=== PATIENT | male | born 1990 | race Caucasian/White ===

== ENCOUNTER 2017-01-16 14:04 | Emergency (ER) | payer OTHER ==
[2017-01-16 14:07] VITALS: BP 133/81; PULSE 98; RESP 16; TEMP 98.3
--- NOTE | 2017-01-16 14:17 | ED ---
Upper Extremity HPI - General Chief Complaint: Extremity Injury, Upper Stated Complaint: left shoulder injury Time Seen by Provider: 01/16/17 14:09 Source: patient, RN notes reviewed, old records reviewed Mode of arrival: ambulatory Limitations: no limitations - History of Present Illness Initial Comments: Patient is a 26-year-old male chief complaint of 7 years of left shoulder pain. Patient reports that he occasionally can pop in out of socket. Patient reports he has not done it recently. Patient states that he works at [employer] and uses arms frequently. He denies any decreased range of motion. Denies any numbness or tingling down the arm. Patient states the pain is mainly worse over the tip of the shoulder. Denies any falls or trauma. Patient reports that he is right-handed. Patient denies any recent fever, chills, shortness of breath, chest pain, back pain, abdominal pain, nausea vomiting, numbness or tingling, dysuria or hematuria, constipation or diarrhea, headaches or visual changes, or any other current symptoms - Related Data Previous Rx's Medication Instructions Recorded Ibuprofen [Motrin] 800 mg PO Q8HR PRN #20 tab 01/16/17 Allergies Allergy/AdvReac Type Severity Reaction Status Date / Time No Known Allergies Allergy Verified 01/16/17 14:27 Review of Systems ROS Statement: Those systems with pertinent positive or pertinent negative responses have been documented in the HPI. ROS Other: All systems not noted in ROS Statement are negative. Past Medical History Past Medical History: No Reported History History of Any Multi-Drug Resistant Organisms: None Reported Past Surgical History: No Surgical Hx Reported Past Psychological History: No Psychological Hx Reported Smoking Status: Current every day smoker Past Alcohol Use History: None Reported, Rare Past Drug Use History: None Reported General Exam - General Exam Comments Initial Comments: Pleasant 26-year-old male. No distress. Limitations: no limitations General appearance: alert, in no apparent distress Head exam: Present: atraumatic, normocephalic, normal inspection Eye exam: Present: normal appearance, PERRL, EOMI. Absent: scleral icterus, conjunctival injection, periorbital swelling ENT exam: Present: normal exam, mucous membranes moist Neck exam: Present: normal inspection. Absent: tenderness, meningismus, lymphadenopathy Respiratory exam: Present: normal lung sounds bilaterally. Absent: respiratory distress, wheezes, rales, rhonchi, stridor Cardiovascular Exam: Present: regular rate, normal rhythm, normal heart sounds. Absent: systolic murmur, diastolic murmur, rubs, gallop, clicks GI/Abdominal exam: Present: soft, normal bowel sounds. Absent: distended, tenderness, guarding, rebound, rigid Extremities exam: Present: normal inspection, full ROM, normal capillary refill. Absent: tenderness, pedal edema, joint swelling, calf tenderness Left Shoulder Exam: Present: normal inspection, full ROM, tenderness (Patient is tenderness over the glenohumeral joint.) Upper Arm exam: Present: normal inspection, full ROM Elbow exam: Present: normal inspection, full ROM Forearm Wrist exam: Present: normal inspection, full ROM Hand Wrist exam: Present: normal inspection, full ROM Neuro motor exam: Present: wrist extension intact, thumb opposition intact, thumb IP flexion intact, thumb adduction intact, fingers 2-5 abduction intact Neurosensory exam: Present: 2-point discrimination, radial nerve intact, ulnar nerve intact, median nerve intact Vascular: Present: normal capillary refill Back exam: Present: normal inspection Neurological exam: Present: alert, oriented X3, CN II-XII intact Psychiatric exam: Present: normal affect, normal mood Skin exam: Present: warm, dry, intact, normal color. Absent: rash Course Vital Signs 01/16/17 14:06 Temperature 98.3 F Pulse Rate 98 Respiratory 16 Rate Blood Pressure 133/81 O2 Sat by Pulse 99 Oximetry Medical Decision Making - Medical Decision Making Patient is a 26-year-old male chief complaint of 7 years of left shoulder pain. Patient reports that he occasionally can pop in out of socket. Patient reports he has not done it recently. Patient states that he works at [employer] and uses arms frequently. He denies any decreased range of motion. Denies any numbness or tingling down the arm. Patient states the pain is mainly worse over the tip of the shoulder. Denies any falls or trauma. Patient received x-rays. Patient is a full range of motion. Full strength with shoulder. No evidence of deformities, swelling or redness. X-rays negative for any acute process. Discussed the patient is follow-up with orthopedic if symptoms continue to persist. Patient received treatment plan will comply. Return parameters were discussed. Discussed I will discharge the patient with a antiinflammatory medications. - Radiology Data Radiology results: report reviewed X-rays negative for any acute process. Disposition Clinical Impression: Left shoulder strain Disposition: HOME SELF-CARE Condition: Good Instructions: Rotator Cuff Injury (ED) Additional Instructions: Rest arm, ice, take antinflammatory medications. Follow-up with orthopedic physician. Return to emergency department if any alarming signs or symptoms occur. Prescriptions: Ibuprofen [Motrin] 800 mg PO Q8HR PRN #20 tab PRN Reason: Pain Referrals: Sulaiman Diallo MD [STAFF PHYSICIAN] - 1-2 days Time of Disposition: 14:34
--- NOTE | 2017-01-16 14:26 | XR ---
EXAMINATION TYPE: XR shoulder complete LT DATE OF EXAM: 01/16/2017 2:23 PM COMPARISON: NONE HISTORY: Pain TECHNIQUE: Three views are submitted. FINDINGS: The osseous structures are intact. There is no acute fracture or dislocation. The AC joint is maint ained. IMPRESSION: 1. No acute process.
== END 2017-01-16 14:54 | disposition home or self-care (01) ==
LOC: EC 14:04
DX: S46.912A Strain of unspecified muscle, fascia and tendon at shoulder and upper arm level, left arm, initial encounter (principal); F17.200 Nicotine dependence, unspecified, uncomplicated; X58.XXXA Exposure to other specified factors, initial encounter
CPT/HCPCS: 99283

== ENCOUNTER 2018-04-23 14:26 | Emergency (ER) | payer OTHER ==
[2018-04-23 14:36] VITALS: BP 132/86; PULSE 82; RESP 18; TEMP 97.9
[2018-04-23] MEDS ORDERED: IBUPROFEN 600 MG TAB PO STA (14:52)
--- NOTE | 2018-04-23 15:22 | XR ---
EXAMINATION TYPE: XR lumbar spine 2 or 3V DATE OF EXAM: 04/23/2018 CLINICAL HISTORY: Low back pain after lifting injury. TECHNIQUE: Frontal and lateral images of the lumbar spine are obtained. COMPARISON: None FINDINGS: There are 5 lumbar type vertebral bodies identified. The lumbar spine shows satisfactory alignment without evidence of acute fracture or dislocation. Vertebral body heights and disk space he ights are within normal limits. No significant spurring is present. The overlying soft tissue appear s unremarkable. IMPRESSION: No acute fracture or dislocation is seen in the lumbar spine.
--- NOTE | 2018-04-23 15:33 | ED ---
Back Pain HPI - General Chief Complaint: Back Pain/Injury Stated Complaint: back pain Time Seen by Provider: 04/23/18 14:39 Source: patient Limitations: no limitations - History of Present Illness Initial Comments: this is a 27-year-old male with no past medical history presents today for chief complaint of right-sided low back pain times one week. Patient states that last week he was going to throw a heavy garbage bag into the dumpster while at work, he stated that the bag weighed about 50 pounds when he twisted to throw the bag he felt a sharp pain in his right lower back. Patient did not seek medical attention at that time and continue to work. Patient states that the pain continued, and sometimes radiate down his right leg depending on the position. when the pain lasting for greater than a week, patient decided to present to the emergency department for imaging. Patient denies any numbness, tingling, paresthesias, loss sensation, muscle weakness, coolness of the extremities, ataxia of the lower Achilles bilaterally. Patient denies any loss of bowel or bladder control, or saddle paresthesias or anesthesia. Patient admits to right-sided low back pain that is reproduced with palpation and increased with certain movements without any other associated symptoms. Patient denies any recent fever, chills, history of recent weight loss, history of IV drug use, shortness of breath, chest pain, abdominal pain, nausea or vomiting, dysuria, urgency, frequency or hematuria, constipation or diarrhea, headaches or visual changes, or any other complaints. - Related Data Previous Rx's Medication Instructions Recorded Ibuprofen [Motrin] 800 mg PO Q8HR PRN #20 tab 01/16/17 Cyclobenzaprine [Flexeril] 5 mg PO HS 4 Days #4 tab 04/23/18 Ibuprofen [Motrin] 800 mg PO Q8HR PRN 5 Days #15 tab 04/23/18 Allergies Allergy/AdvReac Type Severity Reaction Status Date / Time No Known Allergies Allergy Verified 04/23/18 14:33 Review of Systems ROS Statement: Those systems with pertinent positive or pertinent negative responses have been documented in the HPI. ROS Other: All systems not noted in ROS Statement are negative. Constitutional: Denies: fever, chills, weakness, weight change, night sweats Respiratory: Denies: cough, dyspnea, wheezes, hemoptysis, stridor Cardiovascular: Denies: chest pain Gastrointestinal: Denies: abdominal pain, nausea, vomiting Genitourinary: Denies: urgency, dysuria, frequency, hematuria Musculoskeletal: Reports: as per HPI, back pain, myalgia Skin: Denies: rash, lesions, change in color Neurological: Denies: headache, weakness, numbness, paresthesias, confusion, abnormal gait Past Medical History Past Medical History: No Reported History History of Any Multi-Drug Resistant Organisms: None Reported Past Surgical History: Orthopedic Surgery Past Psychological History: No Psychological Hx Reported Smoking Status: Current every day smoker Past Alcohol Use History: None Reported, Rare Past Drug Use History: Marijuana General Exam - General Exam Comments Initial Comments: General: The patient is awake and alert, in no distress, and does not appear acutely ill. Eye: Pupils are equal, round and reactive to light, extra-ocular movements are intact. No nystagmus. There is normal conjunctiva bilaterally. No signs of icterus. Ears, nose, mouth and throat: There are moist mucous membranes and no oral lesions. Neck: The neck is supple, there is no tenderness or JVD. Cardiovascular: There is a regular rate and rhythm. No murmur, rub or gallop is appreciated. Respiratory: Lungs are clear to auscultation, respirations are non-labored, breath sounds are equal. No wheezes, stridor, rales, or rhonchi. Gastrointestinal: Soft, non-distended, non-tender abdomen without masses or organomegaly noted. There is no rebound or guarding present. No CVA tenderness. Bowel sounds are unremarkable. Musculoskeletal: Full ROM with active range of motion of the lumbar spine with flexion, hyperextension, lateral flexion and rotation. Patient admits to increased pain with rotation to the left lateral flexion to the left. Patient amidst to tenderness to palpation over the right paravertebral muscles and latissimus dorsi. She denies any midline vertebral tenderness to palpation. Strength 5/5of the lower x-rays bilaterally. Sensation intactof the lower extremities equally bilaterally, including the inner thighs. DP pulses equal bilaterally 2+.+2 DTR of the LE equally b/l. Patient is able to heel and toe walk without difficulty, no ataxia noted with gait. Negative straight leg raise bilaterally. Neurological: A&O x 3. CN II-XII intact, There are no obvious motor or sensory deficits. Coordination appears grossly intact. Speech is normal. Skin: Skin is warm and dry and no rashes or lesions are noted. Psychiatric: Cooperative, appropriate mood & affect, normal judgment. Limitations: no limitations Course Vital Signs 04/23/18 14:33 Temperature 97.9 F Pulse Rate 82 Respiratory 18 Rate Blood Pressure 132/86 O2 Sat by Pulse 100 Oximetry Medical Decision Making - Medical Decision Making Patient was given 600 mg ibuprofen for for pain management, and x-rays of lumbar spine were obtained revealing no acute process or fracture, but this basically between the disks appear to be normal height. Given patient's history and physical exam findings at this time feel they're consistent with a lower back strain. Patient was given prescription for Flexeril 5 mg to take at night and educated not to take while working, driving or operating machinery. As well as ibuprofen 800 for pain management as needed. Case was discussed in detail with Dr. Ramirez. Patient was discharged with orthopedic follow-up in 1- 2 days and instructed to return to emergency department for any change orworsening symptoms.patient discharged in stable condition, afebrile. patient was given a work note for 2 days. Patient is instructed to rest, ice and heat back. Disposition Clinical Impression: Low back strain Disposition: HOME SELF-CARE Condition: Good Instructions: Acute Low Back Pain (ED) Additional Instructions: Please use medication as discussed. Please follow-up with orthopedic surgery in 1-2 days if symptoms do not subside. Please return to emergency room if the symptoms increase or worsen or for any other concerns as discussed. Prescriptions: Cyclobenzaprine [Flexeril] 5 mg PO HS 4 Days #4 tab Ibuprofen [Motrin] 800 mg PO Q8HR PRN 5 Days #15 tab PRN Reason: Pain Is patient prescribed a controlled substance at d/c from ED?: No Referrals: Carlitos Leahy Jr, DO [Primary Care Provider] - 1-2 days Sulaiman Diallo MD [STAFF PHYSICIAN] - 1-2 days Time of Disposition: 15:33
== END 2018-04-23 15:39 | disposition home or self-care (01) ==
LOC: EC 14:26
DX: S39.012A Strain of muscle, fascia and tendon of lower back, initial encounter (principal); F17.200 Nicotine dependence, unspecified, uncomplicated; X50.0XXA Overexertion from strenuous movement or load, initial encounter; Y93.89 Activity, other specified; Y92.69 Other specified industrial and construction area as the place of occurrence of the external cause
CPT/HCPCS: 72100; 99283

== ENCOUNTER 2021-08-01 12:34 | Emergency (ER) | payer OTHER ==
--- NOTE | 2021-08-01 13:56 | XR ---
Left hand HISTORY: Trauma and pain 3 views of the left hand There is a boxer's fracture with volar angulation and displacement at the distal fifth metacarpal. Th ere is associated soft tissue swelling. No dislocation. IMPRESSION: Boxer's fracture.
[2021-08-01] MEDS ORDERED: DIPH,PERTUS(ACELL)TETVAC-LF 0.5 ML VIAL IM ONE (15:56)
--- NOTE | 2021-08-01 16:04 | ED ---
General Adult HPI - General Chief complaint: Extremity Injury, Upper Stated complaint: hand injury Time Seen by Provider: 08/01/21 15:00 Source: patient, RN notes reviewed Mode of arrival: ambulatory Limitations: no limitations - History of Present Illness Initial comments: Patient is a pleasant 30-year-old male presenting to the emergency department fo llowing left hand injury. Injury occurred yesterday. Patient was upset and hit a wall. No other area of injury or concern. Patient is right-hand dominant. No history of previous injury to this area. Discomfort is mild to moderate but increases with movement and touch. Patient does not want any pain medicine. - Related Data Previous Rx's Medication Instructions Recorded Ibuprofen [Motrin] 800 mg PO Q8HR PRN #20 tab 01/16/17 Cyclobenzaprine [Flexeril] 5 mg PO HS 4 Days #4 tab 04/23/18 Ibuprofen [Motrin] 800 mg PO Q8HR PRN 5 Days #15 tab 04/23/18 Allergies Allergy/AdvReac Type Severity Reaction Status Date / Time No Known Allergies Allergy Verified 08/01/21 13:17 Review of Systems ROS Statement: Those systems with pertinent positive or pertinent negative responses have been documented in the HPI. ROS Other: All systems not noted in ROS Statement are negative. Constitutional: Denies: fever Eyes: Denies: eye pain ENT: Denies: ear pain Respiratory: Denies: cough Cardiovascular: Denies: chest pain Endocrine: Denies: fatigue Genitourinary: Denies: dysuria Musculoskeletal: Reports: as per HPI. Denies: back pain Skin: Denies: lesions Neurological: Denies: weakness Past Medical History Past Medical History: No Reported History History of Any Multi-Drug Resistant Organisms: None Reported Past Surgical History: Orthopedic Surgery Past Psychological History: No Psychological Hx Reported Smoking Status: Current some day smoker Past Alcohol Use History: None Reported, Rare Past Drug Use History: Marijuana General Exam Limitations: no limitations General appearance: alert, in no apparent distress Head exam: Present: atraumatic Eye exam: Present: normal appearance Neck exam: Absent: tenderness Respiratory exam: Present: normal lung sounds bilaterally Cardiovascular Exam: Present: regular rate, normal rhythm GI/Abdominal exam: Present: soft. Absent: tenderness Extremities exam: Present: other (Left hand proximal to the fifth MCP with swel ling and tenderness and small abrasion. Distally the finger is neurovascular intact. Good strength. Sensation intact. Cap refill less than 10 seconds.) Neurological exam: Present: alert. Absent: motor sensory deficit Psychiatric exam: Present: normal affect, normal mood Skin exam: Present: abrasion Course Vital Signs 08/01/21 13:14 Temperature 97.9 F Pulse Rate 83 Respiratory 19 Rate Blood Pressure 141/89 O2 Sat by Pulse 98 Oximetry Procedures - Orthopedic Splinting/Casting Injury #1 Side: left Upper Extremity Injury Location: short arm Upper Extremity Immobilizer: ulnar gutter Medical Decision Making - Radiology Data Radiology results: image reviewed (Left hand x-ray does show a boxer's fracture) Disposition Clinical Impression: Boxers fracture Disposition: HOME SELF-CARE Condition: Stable Instructions (If sedation given, give patient instructions): Hand Fracture (ED) Additional Instructions: Please follow-up with orthopedics in the next couple days for recheck, number given. Ice to affected area. Return for increased pain, swelling, hand problems, worsening or changing symptoms or other concerns. Is patient prescribed a controlled substance at d/c from ED?: No Referrals: Carlitos Leahy Jr, DO [Primary Care Provider] - 1-2 days Darren Mitchell DO [Doctor of Osteopathic Medicine] - 1-2 days Time of Disposition: 16:04
[2021-08-01 16:13] VITALS: BP 140/78; PULSE 77; RESP 20; TEMP 98.6
== END 2021-08-01 16:14 | disposition home or self-care (01) ==
LOC: EC 12:34
DX: S62.397A Other fracture of fifth metacarpal bone, left hand, initial encounter for closed fracture (principal); F17.200 Nicotine dependence, unspecified, uncomplicated; F12.90 Cannabis use, unspecified, uncomplicated; W22.01XA Walked into wall, initial encounter
CPT/HCPCS: 29125; 99284

== ENCOUNTER 2022-09-04 19:41 | Emergency (ER) | payer OTHER ==
--- NOTE | 2022-09-04 20:35 | ED ---
Head Injury HPI - General Chief complaint: Head Injury Stated complaint: Head Injury Time Seen by Provider: 09/04/22 20:24 Source: patient, RN notes reviewed Mode of arrival: ambulatory Limitations: no limitations - History of Present Illness Initial comments: This is a pleasant 32-year-old male who struck his head on part of his machine at work about 2.5 hours ago. Patient states there is a bolt on his machine. Patient states he was slightly dazed. Patient states sometime after that he developed develop some nausea. He's had no vomiting. Denying any vision or hearing changes. No vertigo. No imbalance. Does have a headache that is relegated to the area of injury. This is near the right temporal parietal area. Patient has no blood dyscrasias. Not on blood thinners. There was no loss of consciousness. Recalls the entire event. No headache, no fever or chills, no changes in vision or hearing, no sore throat or difficulty with speech, no neck pain, no chest pain or shortness of breath, no abdominal pain, no nausea or vomiting, no changes in urination or bowel movements, no numbness or tingling, no extremity pain, no skin rashes or lesions. Past medical, christ Complaint: head injury - Related Data Previous Rx's Medication Instructions Recorded Ibuprofen [Motrin] 800 mg PO Q8HR PRN #20 tab 01/16/17 Cyclobenzaprine [Flexeril] 5 mg PO HS 4 Days #4 tab 04/23/18 Ibuprofen [Motrin] 800 mg PO Q8HR PRN 5 Days #15 tab 04/23/18 Allergies/Adverse reactions: Allergies Allergy/AdvReac Type Severity Reaction Status Date / Time No Known Allergies Allergy Verified 09/04/22 19:59 Review of Systems ROS Statement: Those systems with pertinent positive or pertinent negative responses have been documented in the HPI. ROS Other: All systems not noted in ROS Statement are negative. Past Medical History Past Medical History: No Reported History History of Any Multi-Drug Resistant Organisms: None Reported Past Surgical History: Orthopedic Surgery Past Psychological History: No Psychological Hx Reported Smoking Status: Former smoker Past Alcohol Use History: None Reported, Rare Past Drug Use History: Marijuana General Exam - General Exam Comments Initial Comments: Cranial nerves II through XII intact. Alert and oriented 4. Normal gait. Limitations: no limitations General appearance: alert, in no apparent distress Head exam: Present: other (Patient has a tiny abrasion to the right parietal temporal area. No crepitus. No step-off. No bleeding. Normocephalic/atraumatic otherwise.) Eye exam: Present: normal appearance, PERRL, EOMI. Absent: scleral icterus, conjunctival injection, periorbital swelling ENT exam: Present: normal exam, normal oropharynx, mucous membranes moist, TM's normal bilaterally, normal external ear exam. Absent: mucous membranes dry Neck exam: Present: normal inspection, full ROM. Absent: tenderness, meningismus, lymphadenopathy Respiratory exam: Present: normal lung sounds bilaterally. Absent: respiratory distress, wheezes, rales, rhonchi, stridor, chest wall tenderness, accessory muscle use, decreased breath sounds, prolonged expiratory Cardiovascular Exam: Present: regular rate, normal rhythm, normal heart sounds. Absent: systolic murmur, diastolic murmur, rubs, gallop, clicks GI/Abdominal exam: Present: soft, normal bowel sounds. Absent: distended, tenderness, guarding, rebound, rigid Extremities exam: Present: normal inspection, full ROM, normal capillary refill. Absent: tenderness, pedal edema, joint swelling, calf tenderness Back exam: Present: normal inspection Neurological exam: Present: alert, oriented X3, CN II-XII intact. Absent: motor sensory deficit Expanded Patient oriented to: Present: person, place, time Speech: Present: fluid speech Cranial nerves: EOM's Intact: Normal, Gag Reflex: Normal, Tongue Deviation: Normal, Nystagmus: Normal, Facial Sensation: Normal, Facial Palsy with Forehead Movement: Normal, Facial Palsy without Forehead Movement: Normal Ataxia: Absent: yes Cerebellar function: Finger to Nose: Normal, Romberg: Normal Motor strength exam: RUE: 5, LUE: 5, RLE: 5, LLE: 5 Eye Response: (4) open spontaneously Motor Response: (6) obeys commands Verbal Response: (5) oriented [place] Total: 15 Psychiatric exam: Present: normal affect, normal mood Skin exam: Present: warm, dry, intact, normal color. Absent: rash Course Vital Signs 09/04/22 19:57 Temperature 98.7 F Pulse Rate 80 Respiratory 18 Rate Blood Pressure 129/81 O2 Sat by Pulse 96 Oximetry Medical Decision Making - Medical Decision Making Differential diagnosis: Closed head injury, concussion, skull fracture, intracranial hemorrhage Supervising physician Dr. Doss Computed tomography scan was considered. After long discussion with the patient, this was deferred. Shared decision-making. Patient neurologically intact. Cerebellar testing is normal. Suspect the patient has a mild close head injury, possible mild concussion. We'll have the patient off of work until reevaluation tomorrow. Patient concurs with this treatment plan. For Tylenol, patient deferred this medication. Patient was told to return to the ER for any signs or symptoms worsen. Told to return immediately if any other problems arise. All questions answered. Treatment plan discussed. Patient in agreement Every effort has been made to ensure accuracy of this dictation. However, due to the limitations of electronic medical records and dictation devices, errors in charting still occur. The case was discussed in detail with ED attending physician. Presentation, findings, treatment plan discussed in detail. Jack Machine Operator Dr. Doss Disposition Clinical Impression: Closed head injury, Concussion without loss of consciousness Disposition: HOME SELF-CARE Condition: Good Instructions (If sedation given, give patient instructions): Head Injury (ED) Additional Instructions: Follow[facility]up with [facility] tomorrow prior to returning to work--- for reevaluation. Follow-up with your regular physician as directed. Return to the ER immediately if any symptoms worsen, new symptoms arise, or any other problems develop. Is patient prescribed a controlled substance at d/c from ED?: No Time of Disposition: 20:34
[2022-09-04 21:44] VITALS: BP 115/74; PULSE 69; RESP 16; TEMP 98.9
== END 2022-09-04 21:44 | disposition home or self-care (01) ==
LOC: EC 19:41
DX: S06.0X0A Concussion without loss of consciousness, initial encounter (principal); F12.90 Cannabis use, unspecified, uncomplicated; Z87.891 Personal history of nicotine dependence; W31.1XXA Contact with metalworking machines, initial encounter
CPT/HCPCS: 99283

== ENCOUNTER → 2022-09-07 | Outpatient (CLI) | payer OTHER ==
--- NOTE | 2022-09-07 12:13 | CT ---
EXAMINATION TYPE: CT brain wo con DATE OF EXAM: 09/07/2022 COMPARISON: None INDICATION: Contusion Head DLP: 1054.2 mGycm, Automated exposure control for dose reduction was used. CONTRAST: None CT of the brain is performed utilizing 3 mm thick sections through the posterior fossa and 3 mm thick sections through the remaining calvarium. Study is performed within 24 hours of arrival to the hosp [facility]. No abnormal hyperdensity is present to suggest an acute intracranial hemorrhage. No mass lesion is evident. No acute infarcts are evident. Ventricles and sulci are appropriate for the patient age. Paranasal sinuses and mastoid air cells within the [id number] are clear. No acute fractures are evident. IMPRESSIONS: 1. No acute intracranial process. Follow-up MRI can be performed as clinically indicated.
== END | disposition home or self-care (01) ==
LOC: RADCTMAIN 11:47
PROVIDERS: ATTEND Emergency Medicine
DX: S00.83XA Contusion of other part of head, initial encounter (principal)
CPT/HCPCS: 70450

== ENCOUNTER 2024-03-15 14:45 | Emergency (ER) | payer BC, OTHER ==
--- NOTE | 2024-03-15 14:57 | ED ---
General Adult HPI - General Chief complaint: Extremity Injury, Lower Stated complaint: leg lac Time Seen by Provider: 03/15/24 14:57 Source: patient, RN notes reviewed Mode of arrival: ambulatory Limitations: no limitations - History of Present Illness Initial comments: This is a 33-year-old male's emergency department chief complaint of a laceration to his right thigh. Patient states that he was at home using an X- [employer] knife to cut part of his bumper when he recently slipped cutting his right thigh. He states that bleeding was controlled at home with use of paper at home. He denies paresthesias or numbness or tingling to the leg. Patient has full mobility. He is unaware when his last tetanus vaccine was. No other acute complaints at this time. - Related Data Previous Rx's Medication Instructions Recorded Ibuprofen [Motrin] 800 mg PO Q8HR PRN #20 tab 01/16/17 Cyclobenzaprine [Flexeril] 5 mg PO HS 4 Days #4 tab 04/23/18 Ibuprofen [Motrin] 800 mg PO Q8HR PRN 5 Days #15 tab 04/23/18 Allergies Allergy/AdvReac Type Severity Reaction Status Date / Time No Known Allergies Allergy Verified 03/15/24 14:53 Review of Systems ROS Statement: Those systems with pertinent positive or pertinent negative responses have been documented in the HPI. ROS Other: All systems not noted in ROS Statement are negative. Past Medical History Past Medical History: No Reported History History of Any Multi-Drug Resistant Organisms: None Reported Past Surgical History: Orthopedic Surgery Past Psychological History: No Psychological Hx Reported Smoking Status: Former smoker Past Alcohol Use History: None Reported, Rare Past Drug Use History: Marijuana General Exam Limitations: no limitations General appearance: alert, in no apparent distress Head exam: Present: atraumatic, normocephalic, normal inspection Eye exam: Present: normal appearance, PERRL, EOMI. Absent: scleral icterus, conjunctival injection, periorbital swelling ENT exam: Present: normal exam, mucous membranes moist Neck exam: Present: normal inspection. Absent: tenderness, meningismus, lymphadenopathy Respiratory exam: Present: normal lung sounds bilaterally. Absent: respiratory distress, wheezes, rales, rhonchi, stridor Cardiovascular Exam: Present: regular rate, normal rhythm, normal heart sounds. Absent: systolic murmur, diastolic murmur, rubs, gallop, clicks GI/Abdominal exam: Present: soft, normal bowel sounds. Absent: distended, tenderness, guarding, rebound, rigid Extremities exam: Present: normal inspection, full ROM, normal capillary refill. Absent: tenderness, pedal edema, joint swelling, calf tenderness Back exam: Present: normal inspection Neurological exam: Present: alert, oriented X3, CN II-XII intact Psychiatric exam: Present: normal affect, normal mood Skin exam: Present: warm, dry, intact, other (2 cm laceration over the anterior right thigh) Course Vital Signs 03/15/24 03/15/24 14:50 15:45 Temperature 97.4 F L 97.9 F Pulse Rate 77 60 Respiratory 16 18 Rate Blood Pressure 134/81 124/80 O2 Sat by Pulse 99 99 Oximetry Procedures - Laceration Laceration #1 Consent Obtained: verbal consent Indication: laceration Site: lower extremity Size (cm): 3 Description: linear Depth: simple, single layer Anesthetic Used: lidocaine 1%, with epi Anesthesia Technique: local infiltration Amount (mls): 3 Pre-repair: wound explored, irrigated extensively Type of Sutures: nylon Size of Sutures: 4-0 Number of Sutures: 3 Technique: simple, interrupted Patient Tolerated Procedure: well, no complications Medical Decision Making - Medical Decision Making Was pt. sent in by a medical professional or institution (TERRY Lees, [employer] SET UP OPERATOR, urgent care, hospital, or fci...) When possible be specific @ -No Did you speak to anyone other than the patient for history (EMS, parent, family, police, friend...)? What history was obtained from this source @ -No Did you review nursing and triage notes (agree or disagree)? Why? @ -I reviewed and agree with nursing and triage notes Were old charts reviewed (outside hosp., previous admission, EMS record, old EKG, old radiological studies, urgent care reports/EKG's, fci records)? Report findings @ -No old charts were reviewed Differential Diagnosis (chest pain, altered mental status, abdominal pain women, abdominal pain men, vaginal bleeding, weakness, fever, dyspnea, syncope, headache, dizziness, GI bleed, back pain, seizure, CVA, palpatations, mental health, musculoskeletal)? @ -laceration EKG interpreted by me (3pts min.). @ -none X-rays interpreted by me (1pt min.). @ -None done CT interpreted by me (1pt min.). @ -None done U/S interpreted by me (1pt. min.). @ -None done What testing was considered but not performed or refused? (CT, X-rays, U/S, labs)? Why? @ -None What meds were considered but not given or refused? Why? @ -None Did you discuss the management of the patient with other professionals (professionals i.e. DrNamrata, PA, [employer] SET UP OPERATOR, lab, RT, psych nurse, high school social studies tutor, labels molder, teacher, escrow officer, assistant case manager)? Give summary @ -No Was smoking cessation discussed for >3mins.? @ -No Was critical care preformed (if so, how long)? @ -No Were there social determinants of health that impacted care today? How? (Homelessness, low income, unemployed, alcoholism, drug addiction, transportation, low edu. Level, literacy, decrease access to med. care, long term, rehab)? @ -No Was there de-escalation of care discussed even if they declined (Discuss DNR or withdrawal of care, Hospice)? DNR status @ -No What co-morbidities impacted this encounter? (DM, HTN, Smoking, COPD, CAD, Cancer, CVA, ARF, Chemo, Hep., AIDS, mental health diagnosis, sleep apnea, morbid obesity)? @ -None Was patient admitted / discharged? Hospital course, mention meds given and route, prescriptions, significant lab abnormalities, going to OR and other pertinent info. @ -Discharge. 33-year-old male with a laceration. On examination patient notes to have a 2 cm laceration to his right thigh involving the superficial skin, subcutaneous tissue noted. Area was thoroughly cleansed with sterile water and Xylocaine was used to numb the area. 3 simple interrupted sutures were placed with 4 oh. Have patient return to the emergency department in the next 7 to 10 days or to his primary care provider for suture removal. Suture care discussed at bedside. Discussed with Dr. Walker. Undiagnosed new problem with uncertain prognosis? @ -No Drug Therapy requiring intensive monitoring for toxicity (Heparin, Nitro, Insulin, Cardizem)? @ -No Were any procedures done? @ -wound irrigation, suture repair Diagnosis/symptom? @ -laceration Acute, or Chronic, or Acute on Chronic? @ -acute Uncomplicated (without systemic symptoms) or Complicated (systemic symptoms)? @ -uncomplicated Side effects of treatment? @ -No Exacerbation, Progression, or Severe Exacerbation? @ -No Poses a threat to life or bodily function? How? (Chest pain, [place], [place], pneumonia, PE, COPD, DKA, ARF, appy, cholecystitis, CVA, Diverticulitis, Homicidal, Suicidal, threat to staff... and all critical care pts) @ -No Disposition Clinical Impression: Laceration Disposition: HOME SELF-CARE Condition: Good Instructions (If sedation given, give patient instructions): Care For Your Stitches (DC) Additional Instructions: Return to the emergency department or to your primary care provider in the next 7 to 10 days for suture removal. Review education material on how to care for your stitches. r Is patient prescribed a controlled substance at d/c from ED?: No Referrals: Carlitos Leahy Jr, [Primary Care Provider] - 1-2 days Time of Disposition: 15:34
[2024-03-15] MEDS: DIPH,PERTUS(ACELL)TETVAC-LF 0.5 ML VIAL IM ONE (15:18)
[2024-03-15] MEDS: LIDOCAINE 1%-EPI 1:100,000 20 ML VIAL SQ STA (15:20)
[2024-03-15 15:48] VITALS: BP 124/80; PULSE 60; RESP 18; TEMP 97.9
== END 2024-03-15 15:49 | disposition home or self-care (01) ==
LOC: EC 14:45
DX: S71.111A Laceration without foreign body, right thigh, initial encounter (principal); Z23 Encounter for immunization; Z87.891 Personal history of nicotine dependence; W26.0XXA Contact with knife, initial encounter; Y92.009 Unspecified place in unspecified non-institutional (private) residence as the place of occurrence of the external cause
CPT/HCPCS: 12002; 90471; 90715; 99283